=== PATIENT | male | born 1970 | race Caucasian/White ===

== ENCOUNTER 2018-03-08 09:51 | Emergency (ER) | payer OTHER ==
[~2018-03-08] VITALS: Ht 162.6 cm; Wt 78.9 kg
[2018-03-08 10:03] VITALS: Ht 162.6 cm; Wt 78.9 kg
[2018-03-08 12:14] VITALS: BP 128/74
== END 2018-03-08 12:00 | disposition home or self-care (01) ==
LOC: ED 09:51
DX: S62.633A Displaced fracture of distal phalanx of left middle finger, initial encounter for closed fracture (principal); W31.89XA Contact with other specified machinery, initial encounter; Y93.89 Activity, other specified; Y92.89 Other specified places as the place of occurrence of the external cause; Y99.8 Other external cause status
CPT/HCPCS: 90715; A4570; J2001